=== PATIENT | female | born 1995 | race Caucasian/White ===

== ENCOUNTER 2016-08-04 20:42 | Emergency (ER) | payer SELFPAY ==
[~2016-08-04 20:42] MED LIST: METHERGINE0.2 MG PO
--- NOTE | 2016-08-04 23:54 | ED NURSING NOTES ---
Clinical Report - Nurses [facility] [address] [place] [address] 08/04/2016 20:44 Patient: ISIS MEDEIROS TRIAGE Triage time 2110. Acuity: LEVEL 3. Chief Complaint: DIZZINESS, WEAKNESS and NEAR-SYNCOPE. --21:32 Brittnee Hernandez R.N. 21:10 08/04/16. BP: 109/72. HR: 70. RR: 19. O2 saturation: 100%. Temp: 98.3 F. Pain level now: 05/19. Additional comments: 109/72 flat, 119/85 sitting, 119/73 standing; HR 70 flat, 66 sitting, 65 standing . --21:32 Brittnee Hernandez R.N. Weight: 63.5 kg. Height/Length: 65 inches. BMI: 23.3. --21:20 Brittnee Hernandez R.N. Medications Ibuprofen Oral 800 mg, PRN, last dose 1200. --21:21 Brittnee Hernandez R.N. Allergies No Known Drug Allergy. --21:21 Brittnee Hernandez R.N. History Arrived by private vehicle. Historian: patient. Accompanied by mother. Primary physician (tino). This started yesterday pt was out in sun yesterday, but thinks she kept hydrated well. c/o dizziness and near syncope episodes several times during day today. PAST MEDICAL HX: Last normal menstrual period- 8 days ago. SURGERY HX: No history of previous surgery. SOCIAL HX: Never smoker. Occasional alcohol use. History of drug use: marijuana. (did use ecstasy and marijuana this past weekend). --21:32 Brittnee Hernandez R.N. PROBLEMS: Chlamydia. Pharyngitis. Abscess. Dental Pain. --21:20 Brittnee Hernandez R.N. Ovarian Torsion [RuleOut]. --21:20 Brittnee Hernandez R.N. ADDITIONAL SURGERIES: no known surgeries. Interventions ID band on patient. To treatment room. --21:32 Brittnee Hernandez R.N. PHYSICAL ASSESSMENT 21:10. Ambulatory to room. Patient gowned. GENERAL / NEURO / PSYCH: Oriented X 4. Appears in no acute distress. Alert. Speech within normal limits. HEENT: No facial asymmetry noted. RESPIRATORY: Respirations not labored. CVS: Capillary refill less than 2 seconds. SKIN: Skin is warm and dry. --21:24 Brittnee Hernandez R.N. NURSING PROGRESS NOTES 21:10. Patient gowned. Head of bed elevated. Reassurance given. Patient identifiers checked. Call light placed in reach. Side rails up. Bed placed in lowest position. Patient ready for evaluation- chart flagged. --21:23 Brittnee Hernandez R.N. 21:23 08/04/16. Patient ID band checked for patient name and birthdate: patient confirmed. Clean catch urine collected with return of yellow-colored clear urine; sample sent to lab for urinalysis, culture, drug screen and HCG. Specimen labeled in the presence of the patient. --21:23 Brittnee Hernandez R.N. EKG time: (21:39). EKG was performed by a tech and shown to the ED physician. --22:13 Mariajose Holliday 22:15. Care transferred and report given (Ladan EDRMelva). --22:20 Brittnee Hernandez R.N. 22:28 08/04/2016 Site #1 started via IV in the left antecubital space with an 20g angiocath, with aseptic technique and good blood return; one attempt. Blood drawn: rainbow set. Labeled in the presence of the patient and sent to the lab. Saline lock flushed with 10 mL saline. --22:34 Ladan Smith R.N. 22:28 08/04/2016 Started bag #1 1000 mL IV Fluids IV NS (Saline); bolus of 1000 mL wide open then over 1 hour(s) via site #1. Allergies verified and confirmed 5 rights. IV patency established. IV site checked: no pain, redness, or swelling. IV flushed thoroughly pre- and post-medication administration. --22:34 Ladan Smith R.N. 23:44 08/04/2016 Nitrofurantoin PO Capsules 100 mg given. Allergies verified and confirmed 5 rights. --23:44 Ladan Smith R.N. DISPOSITION / DISCHARGE 00:08 08/05/2016 Site #1 removed upon discharge. Catheter intact. Manual pressure and bandage applied. --00:08 Ladan Smith R.N. 23:45 08/05/2016 IV Fluids IV NS Discontinued: completed upon discharge. Total amount infused: 1000 mL. IV patency established. IV site checked: no pain, redness, or swelling. IV flushed thoroughly. --00:08 Ladan Smith R.N. Departure time: 0008. Condition at departure: improved and stable. No learning barriers present. Discharge instructions provided and reviewed with the patient. Reviewed medication(s) side effects, precautions, dosing and course information. Prescription(s) given to the patient. Patient verbalized understanding. Written instructions provided in Tunisian. The patient was discharged home and accompanied by family. She left the Emergency Department ambulatory and via private vehicle. Family member driving. --00:11 Ladan Smith R.N. 00:07 08/05/16. BP: 122/79 taken on the right arm, while lying. HR: 64 (regular and normal rate). RR: 18 (regular and unlabored). O2 saturation: 97% on room air. Temp: deferred. Pain level now: 0/10. --00:11 Ladan Smith R.N. Locked/Released at 08/05/2016 0:12 by Ladan Smith R.N.
--- NOTE | 2016-08-04 23:54 | ED ORDER SUMMARY ---
..... Patient: ISIS MEDEIROS OrderSheet [facility] VisitID: [id number] [address] [place] [address] 20y, F Registration Date/Time: 08/04/2016 ORDER SHEET Weight: 63.5 kg Allergies: No Known Drug Allergy GENERAL ORDERS: UA-Culture if indicated Urgent (21:20 08/04/2016 JQuivey R.N. per protocol) (Ack 21:24 LMuller) (21:33 DDean R.N.) Urine Urgent (21:20 08/04/2016 JQuivey R.N. per protocol) (Ack 21:24 LMuller) (21:33 DDean R.N.) EKG - ER Stat (21:23 08/04/2016 Subha Stevenson) (Ack 21:24 LMuller) (21:39 DDean R.N.) Senior Business Development Manager (Continuous) (light headed) (21:56 08/04/2016 Subha Stevenson) (22:19 DDean R.N.) CBC w Diff Urgent (21:57 08/04/2016 Subha Stevenson) (Ack 21:59 LMuller) (22:33 CBja R.N.) CMP Urgent (21:57 08/04/2016 Subha Stevenson) (Ack 21:59 LMuller) (22:33 Jd R.N.) Urine Urgent (21:57 08/04/2016 Subha Stevenson) (Ack 21:59 LMuller) (21:59 LMuller) CPK Urgent (21:57 08/04/2016 Subha Stevenson) (Ack 21:59 LMuller) (22:33 Jd R.NFouzia) Pulse oximeter (21:57 08/04/2016 Subha Stevenson) (22:19 DDean R.N.) MEDICATION ORDERS: Nitrofurantoin PO 100 mg (NOW) (23:36 08/04/2016 Subha Stevenson) (Ack 23:40 Jd R.N.) (23:44 Jd R.N.) IV FLUIDS: IV NS : initial bolus 1000 mL (1000 mL/hr), then none - for X1 (NOW) (21:57 08/04/2016 Subha Stevenson) (k 22:19 Ame MontalvoNFouzia) (22:34 Jd Winters) ORDER SHEET NOTES: [Electronically signed by Ladan Smith R.N. (00:12 08/05/2016)] [Electronically signed by Ramon Dee Dr. (03:55 08/08/2016)] [Electronically locked/signed by Ladan Smith R.N. (00:12 08/05/2016)]
--- NOTE | 2016-08-04 23:54 | ED ORDER SUMMARY ---
..... Patient: ISIS MEDEIROS OrderSheet [facility] VisitID: [id number] [address] [place] [address] 20y, F Registration Date/Time: 08/04/2016 ORDER SHEET Weight: 63.5 kg Allergies: No Known Drug Allergy GENERAL ORDERS: UA-Culture if indicated Urgent (21:20 08/04/2016 JQuivey R.N. per protocol) (Ack 21:24 LMuller) (21:33 DDean R.N.) Urine Urgent (21:20 08/04/2016 JQuivey R.N. per protocol) (Ack 21:24 LMuller) (21:33 DDean R.N.) EKG - ER Stat (21:23 08/04/2016 Subha Stevenson) (Ack 21:24 LMuller) (21:39 DDean R.N.) Tile Mechanic Helper (Continuous) (light headed) (21:56 08/04/2016 Subha Stevenson) (22:19 DDean R.N.) CBC w Diff Urgent (21:57 08/04/2016 Subha Stevenson) (Ack 21:59 LMuller) (22:33 CBja R.N.) CMP Urgent (21:57 08/04/2016 Subha Stevenson) (Ack 21:59 LMuller) (22:33 Jd R.N.) Urine Urgent (21:57 08/04/2016 Subha Stevenson) (Ack 21:59 LMuller) (21:59 LMuller) CPK Urgent (21:57 08/04/2016 Subha Stevenson) (Ack 21:59 LMuller) (22:33 Jd R.NFouzia) Pulse oximeter (21:57 08/04/2016 Subha Stevenson) (22:19 DDean R.N.) MEDICATION ORDERS: Nitrofurantoin PO 100 mg (NOW) (23:36 08/04/2016 Subha Stevenson) (Ack 23:40 Jd R.N.) (23:44 Jd R.N.) IV FLUIDS: IV NS : initial bolus 1000 mL (1000 mL/hr), then none - for X1 (NOW) (21:57 08/04/2016 Subha Stevenson) (k 22:19 Ame MontalvoNFouzia) (22:34 Jd Winters) ORDER SHEET NOTES: [Electronically signed by Ladan Smith R.N. (00:12 08/05/2016)] [Electronically signed by Ramon Dee Dr. (03:55 08/08/2016)] [Electronically locked/signed by Ladan Smith R.N. (00:12 08/05/2016)]
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
--- NOTE | 2016-08-08 03:55 | ED MED RECONCILIATION SUMMARY ---
Patient: ISIS MEDEIROS Medication Reconciliation Report [facility] VisitID: [id number] [address] [place] [address] 20y, F Registration Date/Time: 08/04/2016 Weight: 63.5 kg Height/Length: 65 in. BMI: 23.3 ALLERGIES: No Known Drug Allergy The patient's Home Medications are listed below: CONTINUE TAKING THE FOLLOWING MEDICATIONS: Ibuprofen Oral 800 mg, PRN, last dose: 1200 The source(s) of the original Home Medication information: Not obtained. The following Medications were given to the patient in the Emergency Department: IV NS IV Fluids bolus 1000 mL wide open, administered: 08/04/2016 10:28:00 PM Nitrofurantoin [PO] PO 100 mg, administered: 08/04/2016 11:44:00 PM The following Medications were prescribed to the patient: Xwmb-vzr-cuvyznz multivitamin with iron. Follow package instructions. -- Ramon Dee Dr. Macrobid 100 mg: take 1 capsule orally every 12 hours for 5 days. No refill. Substitution is permissible.(disp 10 caps) -- Ramon Dee Dr.
--- NOTE | 2016-08-08 03:55 | ED MAR SUMMARY ---
..... Medication Administration Record [facility] [address] [place] [address] Patient: ISIS MEDEIROS Visit ID: [id number] 20y, F Weight: 63.5 kg Height/Length: 65 in BMI: 23.3 ALLERGIES: No Known Drug Allergy Start 22:28 08/04/2016 Ladan Smith R.N., Stop 23:45 08/05/2016 Ladan Smith R.N. Medication Administered: IV NS (SALINE), Dose: IV Fluids over 1 hour(s), Bolus: 1000 mL wide open, Dispensed: 1000 mL bag, Site: #1 left AC. Medication Ordered: IV NS : initial bolus 1000 mL (1000 mL/hr), then none - for X1 (NOW). Given 23:44 08/04/2016 Ladan Smith R.N. Medication Administered: NITROFURANTOIN [PO], Dose: 100 mg Capsules PO. Medication Ordered: Nitrofurantoin PO 100 mg (NOW).
--- NOTE | 2016-08-08 03:55 | ED DISCHARGE INSTRUCTIONS ---
Patient: ISIS MEDEIROS General Instructions [facility] VisitID: [id number] [address] [place] [address] 20y, F Registration Date/Time: 08/04/2016 Mild dehydration (acute). Acute urinary tract infection. Hypokalemia (acute mild). Mild acute anemia. INSTRUCTIONS Warnings: GENERAL WARNINGS: Return or contact your physician immediately if your condition worsens or changes unexpectedly, if not improving as expected, or if other problems arise. SPECIFICALLY, return if you develop chest pain, fluttering sensation in your chest, lightheadedness, fainting, numbness, weakness or extreme fatigue. Your Current Medications: CONTINUE TAKING THE FOLLOWING MEDICATIONS: Ibuprofen Oral : 800 mg PRN, Last: 1200. Prescription Medications: Macrobid 100 mg: take 1 capsule orally every 12 hours for 5 days. No refill. Substitution is permissible. (disp 10 caps) Frdv-rzg-pismdpk multivitamin with iron. Follow package instructions. Follow-up: Return to the emergency department as needed. Follow up with your doctor in three days. Reason for referral: recheck today's concerns. Summary of care provided to patient via paper. Screening today revealed the patient's blood pressure to be in the normal range. The patient should follow up with a primary care provider for blood pressure management. Understanding of the discharge instructions verbalized by patient. ADDITIONAL INFORMATION Anemia [Type Not Specified, Adult] Red blood cells carry oxygen to the tissues of the body. Anemia is a condition where the size or number of red blood cells in the body is reduced. Iron is needed to make red blood cells. The most common cause of anemia is iron deficiency. This may be due to: i) Blood loss (heavy menstrual periods or bleeding from the stomach or intestines); or, ii) Not eating enough iron-containing foods. Other causes of anemia include certain vitamin deficiencies, chronic kidney disease or certain other chronic illnesses. Anemia causes a feeling of being tired and run down. When anemia becomes severe, the skin becomes pale and there is shortness of breath with exertion. Headaches, dizziness, leg cramps with exertion, drowsiness and fatigue are other common symptoms. Home Care: If you are having symptoms of anemia listed above: -- Do not overexert yourself. -- Talk to your doctor before flying on an airplane or traveling to high altitudes. Follow Up with your doctor as advised by our staff. Additional blood testing may be required to determine the exact cause of your anemia. If testing was done on this visit, it may take several days to get all of the results. You may call this facility or follow up with your own doctor to get the results. Get Prompt Medical Attention if any of the following occur: -- Shortness of breath or chest pain -- Worsening of dizziness, fainting -- Vomiting blood or passing red or black-colored stool Dehydration (Adult) Dehydration occurs when your body loses too much fluid. This may be the result of vomiting a lot or from diarrhea,sweating a lot, or a high fever. It may also happen if you dont drink enough fluid when youre sick. Misuse of diuretics (water pills) can also be a cause. Symptoms include thirst and feeling dizzy, weak, fatigued, or very drowsy. The diet described below is usually enough to treat most cases. Sometimes you may needmedicine. Home Care Follow these guidelines for home care: Drink at least 12 8-ounce glasses of fluid every day to overcome the dehydration. Fluid may include water; orange juice; lemonade; apple, grape, and cranberry juice; clear fruit drinks; electrolyte replacement and sports drinks; and teas and coffee without caffeine. If you have been diagnosed with a kidney disease, ask your doctor how much and what types of fluids you should drink to prevent dehydration. If you have kidney disease, drinking too much fluid can cause it build up in the your body and be dangerous to your health. If you have fever, muscle aching, or headache from a viral syndrome, you may useacetaminophen or ibuprofen, unless another medicine was prescribed for this.If you have chronic liver or kidney disease or ever had a stomach ulcer or GI bleeding, talk with your doctor before using these medicines. Don't take aspirin if you are younger than 18 and are ill with a fever.Aspirin raises the chance forsevere liver injury. Follow-up care Follow up with your health care provider if you don't get better in the next 24 to 48 hours. When to seek medical care Get prompt medical attention if any of theseoccur: Continued vomiting (cant keep liquids down) Frequent diarrhea (more than 5 times a day); blood (red or black color) or mucus in diarrhea Blood in vomit or stool Swollen abdomen or increasing abdominal pain Weakness, dizziness, or fainting Unusually drowsy or confused Reduced urine output or extreme thirst Fever of 100.4 F (38 C) oral or higher that does not get better with fever medication Bladder Infection,Female (Adult) A bladder infection ("cystitis" or "UTI") usually causes a constant urge to urinate and a burning when passing urine. Urine may be cloudy, smelly or dark. There may be pain in the lower abdomen. A bladder infection occurs when bacteria from the vaginal area enter the bladder opening (urethra). This can occur from sexual intercourse, wearing tight clothing, dehydration and other factors. Home Care: Drink lots of fluids (at least 6-8 glasses a day, unless you must restrict fluids for other medical reasons). This will force the medicine into your urinary system and flush the bacteria out of your body. Avoid sexual intercourse until your symptoms are gone. Avoid caffeine, alcohol and spicy foods. These can irritate the bladder. A bladder infection is treated with antibiotics. You may also be given Pyridium (generic = phenazopyridine) to reduce the burning sensation. This medicine will cause your urine to become a bright orange color. The orange urine may stain clothing. You may wear a pad or panty-liner to protect clothing. Preventing Future Infections: Always wipe from front to back after a bowel movement. Keep the genital area clean and dry. Drink plenty of fluids each day to avoid dehydration. Both sexual partners should wash before intercourse. Urinate right after intercourse to flush out the bladder. Wear cotton underwear and cotton-lined panty hose; avoid tight-fitting pants. If you are on control pills and are having frequent bladder infections, discuss with your doctor. Follow Up: Return to this facility or see your doctor if ALL symptoms are not gone after three days of treatment. Get Prompt Medical Attention if any of the following occur: Fever of 100.4F (38C) or higher, or as directed by your healthcare provider No improvement by the third day of treatment Increasing back or abdominal pain Repeated vomiting; unable to keep medicine down Weakness, dizziness or fainting Vaginal discharge Pain, redness or swelling in the labia (outer vaginal area) Hypokalemia Hypokalemia means a low level of potassium in the blood. This most often occurs in patients who take diuretics (water pills). It can also occur due to severe vomiting or diarrhea. A mild case usually causes no symptoms. It is only found with blood testing. More severe potassium loss causes generalized weakness, muscle or abdominal cramping, heart palpitations (rapid or irregular heartbeats) and low blood pressure. Home Care: 1) Take any potassium supplements prescribed. 2) Eat foods rich in potassium. The highest amount is found in artichoke, baked potatoes, spinach, cantaloupe, honeydew melon, cod, halibut, salmon, and scallops. White, red, or trevino beans are also very good sources. A modest amount is found in orange juice, bananas, carrots, and tomato juice. 3) Certain types of diuretics (water pills), such as Lasix (furosemide), require that you take potassium supplements for as long as you take the diuretic pills. If you are taking a diuretic, discuss the need for potassium supplements with your doctor. Follow Up with your doctor for a repeat blood test within the next week or as advised by our staff. Get Prompt Medical Attention if any of the following occur: -- Increased weakness -- Feeling dizzy -- Irregular heartbeat, extra beats or very fast heart rate -- Fainting spell Nitrofurantoin, Nitrofurantoin, Macrocrystalline Oral capsule What is this medicine? NITROFURANTOIN (fernanda rodriguez) is an antibiotic. It is used to treat urinary tract infections. How should I use this medicine? Take this medicine by mouth with a glass of water. Follow the directions on the prescription label. Take this medicine with food or milk. Take your doses at regular intervals. Do not take your medicine more often than directed. Do not stop taking except on your doctor's advice. Talk to your physical security engineer regarding the use of this medicine in children. While this drug may be prescribed for selected conditions, precautions do apply. What side effects may I notice from receiving this medicine? Side effects that you should report to your doctor or health career development specialist as soon as possible: allergic reactions like skin rash or hives, swelling of the face, lips, or tongue chest pain cough difficulty breathing dizziness, drowsiness fever or infection joint aches or pains pale or blue-tinted skin redness, blistering, peeling or loosening of the skin, including inside the mouth tingling, burning, pain, or numbness in hands or feet unusual bleeding or bruising unusually weak or tired yellowing of eyes or skin Side effects that usually do not require medical attention (report to your doctor or health career development specialist if they continue or are bothersome): dark urine diarrhea headache loss of appetite nausea or vomiting temporary hair loss What may interact with this medicine? antacids containing magnesium trisilicate probenecid quinolone antibiotics like ciprofloxacin, lomefloxacin, norfloxacin and ofloxacin sulfinpyrazone What if I miss a dose? If you miss a dose, take it as soon as you can. If it is almost time for your next dose, take only that dose. Do not take double or extra doses. Where should I keep my medicine? Keep out of the reach of children. Store at room temperature between 15 and 30 degrees C (59 and 86 degrees F). Protect from light. Throw away any unused medicine after the expiration date. What should I tell my health care provider before I take this medicine? They need to know if you have any of these conditions: anemia diabetes adxqsxw-1-rdqdrpksk dehydrogenase deficiency kidney disease liver disease lung disease other chronic illness an unusual or allergic reaction to nitrofurantoin, other antibiotics, other medicines, foods, dyes or preservatives or trying to get breast-feeding What should I watch for while using this medicine? Tell your doctor or health career development specialist if your symptoms do not improve or if you get new symptoms. Drink several glasses of water a day. If you are taking this medicine for a long time, visit your doctor for regular checks on your progress. If you are diabetic, you may get a false positive result for sugar in your urine with certain brands of urine tests. Check with your doctor. You have been given the following additional information: Anemia, Type Not Specified (Adult) Dehydration (Adult) Bladder Infection, Female (Adult) Hypokalemia Nitrofurantoin, Nitrofurantoin, Macrocrystalline Oral capsule (Electronically signed by Ramon Dee Dr. 08/08/2016 3:55)
--- NOTE | 2016-08-08 03:55 | ED MAR SUMMARY ---
..... Medication Administration Record [facility] [address] [place] [address] Patient: ISIS MEDEIROS Visit ID: [id number] 20y, F Weight: 63.5 kg Height/Length: 65 in BMI: 23.3 ALLERGIES: No Known Drug Allergy Start 22:28 08/04/2016 Ladan Smith R.N., Stop 23:45 08/05/2016 Ladan Smith R.N. Medication Administered: IV NS (SALINE), Dose: IV Fluids over 1 hour(s), Bolus: 1000 mL wide open, Dispensed: 1000 mL bag, Site: #1 left AC. Medication Ordered: IV NS : initial bolus 1000 mL (1000 mL/hr), then none - for X1 (NOW). Given 23:44 08/04/2016 Ladan Smith R.N. Medication Administered: NITROFURANTOIN [PO], Dose: 100 mg Capsules PO. Medication Ordered: Nitrofurantoin PO 100 mg (NOW).
--- NOTE | 2016-08-08 03:55 | ED MED RECONCILIATION SUMMARY ---
Patient: ISIS MEDEIROS Medication Reconciliation Report [facility] VisitID: [id number] [address] [place] [address] 20y, F Registration Date/Time: 08/04/2016 Weight: 63.5 kg Height/Length: 65 in. BMI: 23.3 ALLERGIES: No Known Drug Allergy The patient's Home Medications are listed below: CONTINUE TAKING THE FOLLOWING MEDICATIONS: Ibuprofen Oral 800 mg, PRN, last dose: 1200 The source(s) of the original Home Medication information: Not obtained. The following Medications were given to the patient in the Emergency Department: IV NS IV Fluids bolus 1000 mL wide open, administered: 08/04/2016 10:28:00 PM Nitrofurantoin [PO] PO 100 mg, administered: 08/04/2016 11:44:00 PM The following Medications were prescribed to the patient: Aeio-fgq-gyfbzkp multivitamin with iron. Follow package instructions. -- Ramon Dee Dr. Macrobid 100 mg: take 1 capsule orally every 12 hours for 5 days. No refill. Substitution is permissible.(disp 10 caps) -- Ramon Dee Dr.
== END 2016-08-05 00:08 | disposition home or self-care (01) ==
LOC: ED SRH 20:42
DX: E86.0 Dehydration (principal); N39.0 Urinary tract infection, site not specified; E87.6 Hypokalemia; D64.9 Anemia, unspecified
CPT/HCPCS: 90004; 90100; 90469; 92610; 93070; 95059